=== PATIENT | male | born 1945 | race Caucasian/White ===

== ENCOUNTER 2023-07-28 06:47 | Day surgery (SDC) | payer MEDICARE, OTHER ==
[~2023-07-28] VITALS: Ht 167.6 cm; Wt 78.5 kg
[~2023-07-28 06:47] MED LIST: SODIUM CHLORIDE 0.9% 1,000 ML ONE
[2023-07-28] MEDS ORDERED: FentaNYL CITRATE PF 100 MCG/2 ML VIAL ONE (07:42)
[2023-07-28] MEDS ORDERED: MIDAZOLAM HCL 2 MG/2 ML VIAL ONE (07:42)
[2023-07-28] MEDS: SODIUM CHLORIDE 0.9% 1,000 ML IV ONE (07:48)
[2023-07-28 07:51] LABS: GLUCOMETER DEV NAME(LOC) SDS.; GLUCOSE,POINT OF CARE 102 MG/DL (70-110)
[2023-07-28] MEDS ORDERED: ALBU18HF12 IH (08:18)
[2023-07-28] MEDS ORDERED: DIGO125T84 PO (08:18)
[2023-07-28] MEDS ORDERED: CHOL200059 PO (08:18)
[2023-07-28] MEDS ORDERED: VERI10TA PO (08:18)
[2023-07-28] MEDS ORDERED: DEXT30DR5 OU (08:18)
[2023-07-28] MEDS ORDERED: FLUT16SP NASAL (08:18)
[2023-07-28] MEDS ORDERED: ESCI-8 PO (08:18)
[2023-07-28] MEDS ORDERED: ATOR20TA PO (08:18)
[2023-07-28] MEDS ORDERED: EDOX60TA2 PO (08:18)
[2023-07-28] MEDS ORDERED: UMEC62.5 (08:18)
[2023-07-28] MEDS ORDERED: SPIR-37 PO (08:18)
[2023-07-28] MEDS ORDERED: MONT-35 PO (08:18)
[2023-07-28] MEDS ORDERED: METF-1211 PO (08:18)
[2023-07-28] MEDS ORDERED: GEMF-77 PO (08:18)
[2023-07-28] MEDS ORDERED: BACL10TA PO (08:18)
[2023-07-28] MEDS ORDERED: CARV3 PO (08:18)
[2023-07-28] MEDS ORDERED: SACU1TAB PO (08:18)
[2023-07-28] MEDS ORDERED: EZET10TA57 PO (08:18)
[2023-07-28] MEDS ORDERED: ASPI-1450 PO (08:18)
[2023-07-28] MEDS ORDERED: CANA100T PO (08:18)
[2023-07-28] MEDS ORDERED: GABA-1181 PO (08:18)
[2023-07-28] MEDS ORDERED: CETI-450 PO (08:18)
[2023-07-28] MEDS ORDERED: OMEP20 PO (08:18)
[2023-07-28 09:14] VITALS: PULSE 66; RESP 13; O2SAT 98
[2023-07-28] MEDS ORDERED: MethylPREDNISolone SOD SUCC 125 MG/2 ML VIAL ONE (09:51)
[2023-07-28] MEDS: MethylPREDNISolone SOD SUCC 125 MG/2 ML VIAL IVP ONE (09:55)
[2023-07-28] MEDS ORDERED: ALBUTEROL SULFATE 2.5 MG/0.5 ML NEB SOLUTION NEB ONE (12:00)
[2023-07-28] MEDS ORDERED: LIDOCAINE 2% 11 ML JELLY ONE (12:00)
[2023-07-28] MEDS ORDERED: BENZOCAINE 20% 50 MCG/SPRAY 57 GM ONE (12:00)
[2023-07-28] MEDS ORDERED: LIDOCAINE 4% 50 ML SOLUTION ONE (12:00)
== END 2023-07-28 11:25 | disposition home or self-care (01) ==
LOC: SURGERY 06:47
PROVIDERS: ATTEND Internal Medicine Critical Care Medicine
DX: R05.3 Chronic cough (principal); R06.2 Wheezing; R04.2 Hemoptysis; J84.10 Pulmonary fibrosis, unspecified; J98.8 Other specified respiratory disorders; J98.09 Other diseases of bronchus, not elsewhere classified; R94.31 Abnormal electrocardiogram [ECG] [EKG]; E11.9 Type 2 diabetes mellitus without complications; I11.9 Hypertensive heart disease without heart failure; E78.00 Pure hypercholesterolemia, unspecified; K76.0 Fatty (change of) liver, not elsewhere classified; Z98.818 Other dental procedure status; Z98.890 Other specified postprocedural states
CPT/HCPCS: 93005; 82962; 87206; 87101; 87220; 87070; 31623; 31624; 94640; 71045; 87015; J3010; J2250; J2919; Q9967; J7030; 88108; J7613; Z7610